=== PATIENT | male | born 1950 | race African-American/Black ===

== ENCOUNTER 2017-03-07 21:38 | Emergency (ER) | payer OTHER ==
[~2017-03-07] VITALS: Ht 185.4 cm; Wt 90.0 kg
[~2017-03-07 21:38] MED LIST: ASPI1TAB69 PO; ATOR20TA15 PO; DYAZ37.5 PO; VIAG100T PO
[2017-03-07 21:39] VITALS: BP 189/92; PULSE 93; RESP 16; TEMP 98.4; O2SAT 98
--- NOTE | 2017-03-07 22:48 | PD ---
HPI Chief Complaint: Oral / Dental Pain or Problem Time Seen by Provider: 22:43 Travel History International Travel<30 days: No Contact w/Intl Traveler<30days: No Traveled to known affect area: No History of Present Illness HPI 66-year-old black male presents to emergency department for evaluation of facial tightness in his right cheek. He states that he noticed some tightness in his right cheek and he states that he had the sensation of numbness in his mouth. He states that he knows is not true numbness because he can feel it but it cannot be explained in any other way. He denies any headaches, visual changes, numbness, tingling, chest pain, shortness of breath, focal weakness, or difficulty speaking. He had gone to see [facility] dental today to rule out any dental issues area he states that they performed x-rays of his mouth and ruled out that the etiology of his symptoms were not coming from his teeth. Patient has a history of hypertension, peripheral vascular disease. Patient has taken his aspirin today. PFSH Past Medical History Narrative Medical Hypertension, peripheral vascular disease, prostate CA, GERD, gout Asthma: No Cancer: Yes (prostate) Cardiovascular Problems: No High Cholesterol: No COPD: No Diabetes: No Diminished Hearing: No Endocrine: No Gastrointestinal Disorders: Yes GERD: Yes Genitourinary: Yes (prostate cancer) Hepatitis: No Hiatal Hernia: No Hypertension: Yes Immune Disorder: No Medical other: Yes (Gout) Musculoskeletal: No Neurologic: No Psychiatric: No Reproductive: No Respiratory: No Thyroid Disease: No Tetanus Vaccination: Unknown Past Surgical History Narrative Surgical Right carotid endarterectomy, prostatectomy AICD: No Genitourinary Surgery: Yes (prostate surgery for cancer 07/2014) Joint Replacement: No Pacemaker: No Thoracic Surgery: No Other Surgery: Yes (artery in right side of neck sx) Social History Alcohol Use: Yes (OCC) Tobacco Use: No Substance Use: Yes (cocaine) Allergies-Medications (Allergen,Severity, Reaction): Coded Allergies: No Known Allergies (Verified , 03/07/17) Reported Meds & Prescriptions Reported Meds & Active Scripts Active Reported Atorvastatin (Atorvastatin Calcium) 20 Mg Tab 20 Mg PO HS Aspirin 81 Mg Tabdr 81 Mg PO DAILY Dyazide (Triamterene-Hydrochlorothiazide) 37.5-25 Mg Cap 1 Cap PO DAILY Review of Systems Except as stated in HPI: all other systems reviewed are Neg General / Constitutional: No: Fever Eyes: No: Diploplia, Blurred Vision, Visual changes HENT: Positive: Dental Difficulties, No: Headaches, Sore Throat, Neck Stiffness , Neck Pain, Gingival Bleeding, Ear Discharge, Earache Cardiovascular: No: Chest Pain or Discomfort, Palpitations, Irregular Rhythm, Tachycardia Respiratory: No: Cough, Shortness of Breath Gastrointestinal: No: Nausea, Vomiting, Abdominal Pain Genitourinary: No: Dysuria Musculoskeletal: No: Pain Skin: No Rash Neurologic: No: Weakness Psychiatric: No: Depression Endocrine: No: Polydipsia Hematologic/Lymphatic: No: Easy Bruising Physical Exam Narrative GENERAL: Well-developed, well-nourished in no apparent distress. Nontoxic appearing. HEAD: Normocephalic, atraumatic. EYES: Pupils equal round and reactive. Extraocular motions intact. No scleral icterus. No injection or drainage. ENT: Nose clear. Throat without erythema, tonsillar hypertrophy or exudate. Uvula midline. Airway patent. Patient's partials taken out. His oral cavity is examined. He has multiple dental extractions but there is no evidence of any obvious infection or acute dental process. Patient does have crepitus over both TMJs with manipulation. NECK: Trachea midline. Supple, nontender, moves head freely. No central bony tenderness or spasm. No carotid bruits. Right neck scar from carotid endarterectomy CARDIOVASCULAR: Regular rate and rhythm without murmurs, gallops, or rubs. RESPIRATORY: Clear to auscultation. Breath sounds equal bilaterally. No wheezes , rales, or rhonchi. GASTROINTESTINAL: Abdomen soft, non-tender, nondistended. No hepato-splenomegaly , or palpable masses. No guarding. EXTREMITIES: No clubbing, cyanosis, or edema. No joint tenderness. BACK: Nontender without deformity. No flank tenderness. NEUROLOGICAL: Awake, alert and oriented x 3 .Cranial nerves grossly intact. Motor and sensory grossly within normal limits. Normal speech. Data Data Last Documented VS Vital Signs Date Time Temp Pulse Resp B/P (MAP) Pulse Ox O2 Delivery O2 Flow Rate FiO2 03/08/17 00:00 72 16 133/72 (92) 03/07/17 21:39 98.4 98 Room Air Orders Orders Electrocardiogram (03/07/17 22:39) Complete Blood Count With Diff (03/07/17 22:39) Basic Metabolic Panel (Bmp) (03/07/17 22:39) Ct Brain W/O Iv Contrast(Rout) (03/07/17 22:39) Drug Screen, Random Urine (03/07/17 23:00) Ed Discharge Order (03/08/17 00:43) Labs Laboratory Tests Test 03/07/17 23:05 03/07/17 23:45 White Blood Count 5.6 TH/MM3 Red Blood Count 4.28 MIL/MM3 Hemoglobin 12.4 GM/DL Hematocrit 37.7 % Mean Corpuscular Volume 88.1 FL Mean Corpuscular Hemoglobin 28.9 PG Mean Corpuscular Hemoglobin Concent 32.8 % Red Cell Distribution Width 13.7 % Platelet Count 217 TH/MM3 Mean Platelet Volume 7.4 FL Neutrophils (%) (Auto) 53.4 % Lymphocytes (%) (Auto) 35.3 % Monocytes (%) (Auto) 7.6 % Eosinophils (%) (Auto) 3.2 % Basophils (%) (Auto) 0.5 % Neutrophils # (Auto) 3.0 TH/MM3 Lymphocytes # (Auto) 2.0 TH/MM3 Monocytes # (Auto) 0.4 TH/MM3 Eosinophils # (Auto) 0.2 TH/MM3 Basophils # (Auto) 0.0 TH/MM3 CBC Comment DIFF FINAL Differential Comment Blood Urea Nitrogen 16 MG/DL Creatinine 1.52 MG/DL Random Glucose 92 MG/DL Calcium Level 9.7 MG/DL Sodium Level 140 MEQ/L Potassium Level 3.4 MEQ/L Chloride Level 109 MEQ/L Carbon Dioxide Level 24.3 MEQ/L Anion Gap 7 MEQ/L Estimat Glomerular Filtration Rate 56 ML/MIN MDM Medical Decision Making Medical Screen Exam Complete: Yes Emergency Medical Condition: Yes Medical Record Reviewed: Yes Interpretation(s) Laboratory Tests Test 03/07/17 23:05 03/07/17 23:45 White Blood Count 5.6 TH/MM3 Red Blood Count 4.28 MIL/MM3 Hemoglobin 12.4 GM/DL Hematocrit 37.7 % Mean Corpuscular Volume 88.1 FL Mean Corpuscular Hemoglobin 28.9 PG Mean Corpuscular Hemoglobin Concent 32.8 % Red Cell Distribution Width 13.7 % Platelet Count 217 TH/MM3 Mean Platelet Volume 7.4 FL Neutrophils (%) (Auto) 53.4 % Lymphocytes (%) (Auto) 35.3 % Monocytes (%) (Auto) 7.6 % Eosinophils (%) (Auto) 3.2 % Basophils (%) (Auto) 0.5 % Neutrophils # (Auto) 3.0 TH/MM3 Lymphocytes # (Auto) 2.0 TH/MM3 Monocytes # (Auto) 0.4 TH/MM3 Eosinophils # (Auto) 0.2 TH/MM3 Basophils # (Auto) 0.0 TH/MM3 CBC Comment DIFF FINAL Differential Comment Blood Urea Nitrogen 16 MG/DL Creatinine 1.52 MG/DL Random Glucose 92 MG/DL Calcium Level 9.7 MG/DL Sodium Level 140 MEQ/L Potassium Level 3.4 MEQ/L Chloride Level 109 MEQ/L Carbon Dioxide Level 24.3 MEQ/L Anion Gap 7 MEQ/L Estimat Glomerular Filtration Rate 56 ML/MIN Urine Opiates Screen NEG Urine Barbiturates Screen NEG Urine Amphetamines Screen NEG Urine Benzodiazepines Screen NEG Urine Cocaine Screen POS Urine Cannabinoids Screen NEG EKG: Sinus first degree block with a ventricular rate of 69. Left anterior fascicle block no abnormal ST-T wave changes. CT brain: No acute intercranial pathology. Differential Diagnosis Differential diagnoses: CVA, TIA, trigeminal neuralgia, dental infection, Gonzalez' s palsy, [place] Narrative Course Patient laboratory does have been reviewed. CT of the brain shows no acute intracranial pathology. The patient been evaluated by Dr. Kent. He also agrees that there is no obvious emergent process going on at the patient can follow-up as an outpatient with his primary care doctor. The patient is made aware that there are multiple etiologies of his symptoms and that we were unable to determine the exact cause. Rule out emergent processes today he is medically stable for discharge. This is facial pain Diagnosis Primary Impression: Facial pain Patient Instructions: General Instructions Additional Instructions: Rest. Continue aspirin daily. Follow-up with your medical doctor on Thursday for recheck. Consider following up with a neurologist as well as a roller pneumatic. Return to the ER if symptoms change or worsen. Flexeril. Med/Other Pt SpecificInfo: Prescription(s) given Disposition: DISCHARGE HOME Condition: Stable Curry Cintron Mar 07, 2017 22:48
[2017-03-07 23:49] LABS: BICARBONATE 24.3 MEQ/L (21.0-32.0); POTASSIUM 3.4 MEQ/L (3.5-5.1)
[2017-03-07 23:54] LABS: BASOPHIL % 0.5 % (0.0-2.0); EOSINOPHIL # 0.2 TH/MM3 (0-0.4); EOSINOPHIL % 3.2 % (0.0-4.0); HEMATOCRIT 37.7 % (39.0-51.0); HEMO FLAGS DIFF FINAL; LYMPH % 35.3 % (9.0-44.0); MEAN CELL VOLUME 88.1 FL (80.0-100.0); MEAN CORPUSCULAR HEMOGLOBIN 28.9 PG (27.0-34.0); MEAN CORPUSCULAR HGB CONC 32.8 % (32.0-36.0); MONO % 7.6 % (0.0-8.0); NEUT % 53.4 % (16.0-70.0); PLATELET COUNT 217 TH/MM3 (150-450); RED BLOOD COUNT 4.28 MIL/MM3 (4.50-5.90); RED CELL DISTRIBUTION WIDTH 13.7 % (11.6-17.2); WHITE BLOOD COUNT 5.6 TH/MM3 (4.0-11.0)
[2017-03-08] VITALS: BP 133/72; PULSE 72; RESP 16
--- NOTE | 2017-03-08 00:17 | RADRPT ---
EXAM DATE/TIME: 03/08/2017 00:04 [place] COMPARISON: CT BRAIN W/O CONTRAST, September 21, 2013, 3:40. INDICATIONS : Numbness in jaw. RADIATION DOSE: 56.35 CTDIvol (mGy) MEDICAL HISTORY : Gastroesophageal reflux disease. Hypertension. Carcinoma, prostate. SURGICAL HISTORY : None. ENCOUNTER: Initial ACUITY: 1 day PAIN SCALE: 0/10 LOCATION: cranial TECHNIQUE: Multiple contiguous axial images were obtained of the head. Using automated exposure control and adj ustment of the mA and/or kV according to patient size, radiation dose was kept as low as reasonably a chievable to obtain optimal diagnostic quality images. DICOM format image data is available electro nically for review and comparison. FINDINGS: CEREBRUM: The ventricles are normal for age. No evidence of midline shift, mass lesion, hemorrhage or acute in farction. No extra-axial fluid collections are seen. POSTERIOR FOSSA: The cerebellum and brainstem are intact. The 4th ventricle is midline. The cerebellopontine angle i s unremarkable. EXTRACRANIAL: The visualized portion of the orbits is intact. SKULL: The calvaria is intact. No evidence of skull fracture. CONCLUSION: Normal examination. Ricardo Hutchinson MD on March 08, 2017 at 0:16 Board Certified Radiologist. This report was verified electronically.
[2017-03-08] MEDS ORDERED: CYCL1TAB29 PO (00:48)
--- NOTE | 2017-03-08 00:49 | PD ---
Physical Exam Narrative GENERAL: SKIN: Warm and dry. HEAD: Atraumatic. Normocephalic. EYES: Pupils equal and round. No scleral icterus. No injection or drainage. ENT: No nasal bleeding or discharge. Mucous membranes pink and moist. NECK: Trachea midline. No JVD. CARDIOVASCULAR: Regular rate and rhythm. RESPIRATORY: No accessory muscle use. Clear to auscultation. Breath sounds equal bilaterally. GASTROINTESTINAL: Abdomen soft, non-tender, nondistended. MUSCULOSKELETAL: Extremities without clubbing, cyanosis, or edema. No obvious deformities. NEUROLOGICAL: Awake and alert. No obvious cranial nerve deficits. Motor grossly within normal limits. Five out of 5 muscle strength in the arms and legs. Normal speech. PSYCHIATRIC: Appropriate mood and affect; insight and judgment normal. Data Data Last Documented VS Vital Signs Date Time Temp Pulse Resp B/P (MAP) Pulse Ox O2 Delivery O2 Flow Rate FiO2 03/08/17 00:00 72 16 133/72 (92) 03/07/17 21:39 98.4 98 Room Air Orders Orders Electrocardiogram (03/07/17 22:39) Complete Blood Count With Diff (03/07/17 22:39) Basic Metabolic Panel (Bmp) (03/07/17 22:39) Ct Brain W/O Iv Contrast(Rout) (03/07/17 22:39) Drug Screen, Random Urine (03/07/17 23:00) Ed Discharge Order (03/08/17 00:43) Labs Laboratory Tests Test 03/07/17 23:05 03/07/17 23:45 White Blood Count 5.6 TH/MM3 Red Blood Count 4.28 MIL/MM3 Hemoglobin 12.4 GM/DL Hematocrit 37.7 % Mean Corpuscular Volume 88.1 FL Mean Corpuscular Hemoglobin 28.9 PG Mean Corpuscular Hemoglobin Concent 32.8 % Red Cell Distribution Width 13.7 % Platelet Count 217 TH/MM3 Mean Platelet Volume 7.4 FL Neutrophils (%) (Auto) 53.4 % Lymphocytes (%) (Auto) 35.3 % Monocytes (%) (Auto) 7.6 % Eosinophils (%) (Auto) 3.2 % Basophils (%) (Auto) 0.5 % Neutrophils # (Auto) 3.0 TH/MM3 Lymphocytes # (Auto) 2.0 TH/MM3 Monocytes # (Auto) 0.4 TH/MM3 Eosinophils # (Auto) 0.2 TH/MM3 Basophils # (Auto) 0.0 TH/MM3 CBC Comment DIFF FINAL Differential Comment Blood Urea Nitrogen 16 MG/DL Creatinine 1.52 MG/DL Random Glucose 92 MG/DL Calcium Level 9.7 MG/DL Sodium Level 140 MEQ/L Potassium Level 3.4 MEQ/L Chloride Level 109 MEQ/L Carbon Dioxide Level 24.3 MEQ/L Anion Gap 7 MEQ/L Estimat Glomerular Filtration Rate 56 ML/MIN Urine Opiates Screen NEG Urine Barbiturates Screen NEG Urine Amphetamines Screen NEG Urine Benzodiazepines Screen NEG Urine Cocaine Screen POS Urine Cannabinoids Screen NEG MDM Medical Record Reviewed: Yes Supervised Visit with DENIA: Yes Narrative Course ekg did not show any stemi, ct head didnot show any e/o ich. patient was advised to followup with dr lee pcp for [facility]. patient voiced understanding and will f/u. patient was seen with shamar clayton and entire plan and management was agreed to. Diagnosis Primary Impression: right facial pain Disposition: DISCHARGE HOME Condition: Stable [place] Kent MD Mar 08, 2017 00:49
--- NOTE | 2017-03-08 07:32 | EKG ---
Date Performed: 03/07/2017 Time Performed: 23:08:56 PTAGE: 66 years EKG: Sinus rhythm WITH FIRST DEGREE AV BLOCK LEFT ANTERIOR FASCICULAR BLOCK ABNORMAL ECG No significant change from pr ior electrocardiogram. NO PREVIOUS TRACING DOCTOR: Tejas Rodríguez Interpretating Date/Time 03/08/2017 07:31:11
== END 2017-03-08 01:06 | disposition home or self-care (01) ==
LOC: NEPD 21:38
DX: R51 Headache (principal); K08.89 Other specified disorders of teeth and supporting structures; I10 Essential (primary) hypertension; I73.9 Peripheral vascular disease, unspecified; K21.9 Gastro-esophageal reflux disease without esophagitis; Z85.46 Personal history of malignant neoplasm of prostate; Z79.899 Other long term (current) drug therapy
CPT/HCPCS: 70450; 80048; 80307; 85025; 93005; 99285